=== PATIENT | male | born 2005 | race Caucasian/White ===

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

== ENCOUNTER 2025-01-09 18:17 | Emergency (ER) | payer OTHER ==
[~2025-01-09] VITALS: Ht 182.9 cm; Wt 95.2 kg
[2025-01-09 18:25] VITALS: BP 134/72
[2025-01-09] MEDS ORDERED: ONDA4 PO (19:36)
[2025-01-09] MEDS ORDERED: RX Prepack 2 Tabs Ondansetron ODT 4MG UD ONE (19:40)
== END 2025-01-09 19:48 | disposition home or self-care (01) ==
LOC: ER 18:17
DX: S06.0XAA Concussion with loss of consciousness status unknown, initial encounter (principal); F17.290 Nicotine dependence, other tobacco product, uncomplicated; V99.XXXA Unspecified transport accident, initial encounter
CPT/HCPCS: 70450; 99283-25; A9270

== ENCOUNTER 2025-01-31 09:03 | Emergency (ER) | payer OTHER ==
[~2025-01-31] VITALS: Ht 182.9 cm; Wt 95.2 kg
[~2025-01-31 09:03] MED LIST: ONDA4 PO
[2025-01-31 09:21] VITALS: BP 142/77
[2025-01-31] MEDS ORDERED: Ondansetron 4 MG SoluTab SL ONE (09:35)
[2025-01-31] MEDS ORDERED: OxyCODONE 7.5 mg/Acetam 325 mg TABLET PO ONE (09:35)
[2025-01-31] MEDS ORDERED: CEPH500 PO (11:26)
[2025-01-31] MEDS ORDERED: HYDR1TAB94 PO (11:26)
== END 2025-01-31 11:59 | disposition home or self-care (01) ==
LOC: ER 09:03
DX: S68.625A Partial traumatic transphalangeal amputation of left ring finger, initial encounter (principal); F17.290 Nicotine dependence, other tobacco product, uncomplicated; W45.8XXA Other foreign body or object entering through skin, initial encounter
CPT/HCPCS: 12002; 73140; 99283-25; A9270

== ENCOUNTER 2025-02-07 09:05 | Emergency (ER) | payer OTHER ==
[~2025-02-07] VITALS: Ht 182.9 cm; Wt 95.2 kg
[~2025-02-07 09:05] MED LIST changes: +CEPH500 PO; +HYDR1TAB94 PO
[2025-02-07 09:13] VITALS: BP 140/75
[2025-02-07] MEDS ORDERED: Lidocaine/Tetracaine/Epinephr 3 ML GEL SYRINGE TOP ONE (09:25)
[2025-02-07] MEDS ORDERED: HYDR1TAB94 PO (11:08)
== END 2025-02-07 11:19 | disposition home or self-care (01) ==
LOC: ER 09:05
DX: S61.315D Laceration without foreign body of left ring finger with damage to nail, subsequent encounter (principal); Z48.02 Encounter for removal of sutures; Z79.2 Long term (current) use of antibiotics; Z79.899 Other long term (current) drug therapy; W45.8XXD Other foreign body or object entering through skin, subsequent encounter
CPT/HCPCS: 99281